=== PATIENT | male | born 1995 | race African-American/Black ===

== ENCOUNTER 2021-03-06 12:59 | Inpatient (IN) | payer MEDICAID ==
[~2021-03-06] VITALS: Ht 165.1 cm; Wt 45.4 kg
[~2021-03-06 12:59] MED LIST: POLY335015 PO; RISP2TAB28 PO
[2021-03-06 14:00] LABS: Basophils # (auto) 0 10 ^3/uL (0-0.2); Basophils % (auto) 0.1 % (0.0-2.0); Eosinophils # (auto) 0.1 10 ^3/uL (0-0.8); Eosinophils % (auto) 0.6 % (0.0-7.0); Hematocrit 41.4 % (41.0-53.0); Lymphocytes # (auto) 0.7 10 ^3/uL (0.4-5.4); Lymphocytes % (auto) 6.2 % (10.0-50.0); Mean Corpuscular Hemoglobin 30.7 pg (28.0-32.0); Mean Corpuscular Hgb Conc. 33.8 g/dL (32.0-36.0); Mean Corpuscular Volume 90.9 fL (80.0-100.0); Monocytes # (auto) 0.9 10 ^3/uL (0-1.3); Monocytes % (auto) 7.8 % (0.0-12.0); Neutrophils # (auto) 10.1 10 ^3/uL (1.6-8.6); Neutrophils % (auto) 85.3 % (37.0-80.0); Nucleated Red Blood Cells % 0.1 %; Red Blood Cells 4.56 10^6/uL (4.5-5.90); Red Cell Distribution Width 13.2 % (11.8-14.3); White Blood Cell 11.8 10^3/uL (4.4-10.8)
[2021-03-06 14:16] LABS: INR 1.12 (0.9-1.15); Partial Thromboplastin Time 27.5 sec (23.0-31.2)
[2021-03-06 14:19] LABS: Albumin 3.4 g/dL (3.4-5.0); BUN/Creatinine Ratio 13.4; Calcium 8.8 mg/dL (8.5-10.1); Potassium 3.6 mmol/L (3.5-5.1)
[2021-03-06 14:22] LABS: Bilirubin, Total 1.6 mg/dL (0.2-1.0); Total Protein 7.7 g/dL (6.4-8.2)
[2021-03-06] MEDS ORDERED: PIPERACILLIN-TAZOB 3.375GM 100 ML IV ONE (16:00)
[2021-03-06 18:15] LABS: Urine Bacteria NONE SEEN /hpf (None Seen); Urine Blood Negative /uL (Negative); Urine Mucus FEW (None Seen); Urine WBC 1 /hpf (0 - 3)
[2021-03-06 18:16] LABS: Urine Specific Gravity > 1.050 (1.001-1.035)
[2021-03-06] MEDS ORDERED: BUPIVACAINE 0.25% INJ 50ML VIAL ONE (18:21)
[2021-03-06] MEDS ORDERED: LIDOCAINE W/ EPINEPHRINE 1% 20ML VIAL ONE (18:21)
[2021-03-06] MEDS ORDERED: BACITRACIN INJ 50000 UNIT VIAL ONE (18:22)
[2021-03-06] MEDS ORDERED: MORPHINE SULFATE INJECTION 2 MG/ML SYRG IV PRN ×3 (18:30→20:30)
[2021-03-06] MEDS ORDERED: ONDANSETRON HCL 4 MG/2 ML VIAL IV ONE ×2 (18:30)
[2021-03-06] MEDS ORDERED: NITROGLYCERIN 0.4 MG SL TAB SL PRN ×2 (18:30→19:00)
[2021-03-06] MEDS ORDERED: MORPHINE SULFATE INJECTION 2 MG/ML SYRG IV ONE ×2 (18:30)
[2021-03-06] MEDS ORDERED: MIDAZOLAM HCL 2MG/2ML 2ml VIAL (1mg/ml) ONE (18:31)
[2021-03-06] MEDS ORDERED: SODIUM CHLORIDE LOCK 10 ML ONE (18:31)
[2021-03-06] MEDS ORDERED: MEPERIDINE HCL (25 MG/ML) 1ML VIAL ONE (18:31)
[2021-03-06] MEDS ORDERED: PROPOFOL 10 MG/ML 20 ML IV ONE (18:31)
[2021-03-06] MEDS ORDERED: ROCURONIUM 10MG/ML 10ML VIAL IV ONE (18:31)
[2021-03-06] MEDS ORDERED: fentaNYL CITRATE 100 MCG/2 ML VL ONE (18:31)
[2021-03-06] MEDS ORDERED: ONDANSETRON HCL 4 MG/2 ML VIAL ONE (18:31)
[2021-03-06] MEDS ORDERED: SUCCINYLCHOLINE CHLORIDE 20 MG/ML 10ML VIAL IV ONE (18:38)
[2021-03-06] MEDS ORDERED: ONDANSETRON HCL 4 MG/2 ML VIAL IV PRN (20:30)
[2021-03-06] MEDS ORDERED: HYDROmorphone HCL 2 MG/ML VL IV PRN (20:30)
[2021-03-06 21:40] VITALS: BP 127/76
[2021-03-07] MEDS ORDERED: POLY335015 PO (01:03)
[2021-03-07] MEDS ORDERED: RISP4TAB53 PO (01:03)
[2021-03-07] MEDS: MORPHINE SULFATE INJECTION 2 MG/ML SYRG IV PRN ×3 (03:38→22:03)
[2021-03-07] MEDS ORDERED: SODIUM CHLORIDE 0.9% 500 ML IV ONE ×2 (04:15→06:15)
[2021-03-07 05:31] VITALS: BP 102/58
[2021-03-07 08:00] VITALS: BP 98/57
[2021-03-07] MEDS: POLYETHYLENE GLYCOL 17 GM PWDR PO PRN (08:47)
[2021-03-07 09:00] VITALS: BP 98/57
[2021-03-07] MEDS ORDERED: ACETAMINOPHEN 325 MG TAB PO PRN (11:30)
[2021-03-07] MEDS ORDERED: DOCUSATE SOD 100 MG CAP PO SCH (11:30)
[2021-03-07] MEDS ORDERED: ACETAMINOPHEN 650 mg PER 20.3 mL UD PO PRN (12:00)
[2021-03-07] MEDS: DOCUSATE ORAL LIQUID 100 MG/10 ML UD PO SCH ×2 (12:20→22:01)
[2021-03-07 12:37] LABS: Basophils # (auto) 0 10 ^3/uL (0-0.2); Eosinophils # (auto) 0 10 ^3/uL (0-0.8); Eosinophils % (auto) 0.1 % (0.0-7.0); Hematocrit 35.8 % (41.0-53.0); Hemoglobin 12.2 g/dL (13.5-17.5); Lymphocytes # (auto) 0.8 10 ^3/uL (0.4-5.4); Lymphocytes % (auto) 8.5 % (10.0-50.0); Mean Corpuscular Volume 91.1 fL (80.0-100.0); Monocytes # (auto) 0.9 10 ^3/uL (0-1.3); Monocytes % (auto) 9.6 % (0.0-12.0); Neutrophils # (auto) 7.5 10 ^3/uL (1.6-8.6); Neutrophils % (auto) 81.8 % (37.0-80.0); Red Blood Cells 3.93 10^6/uL (4.5-5.90); White Blood Cell 9.2 10^3/uL (4.4-10.8)
[2021-03-07 12:46] LABS: BUN/Creatinine Ratio 7.7; Calcium 8.2 mg/dL (8.5-10.1); Potassium 3.6 mmol/L (3.5-5.1)
[2021-03-07 13:00] VITALS: BP 109/70
[2021-03-07 14:31] LABS: Urine Bacteria NONE SEEN /hpf (None Seen); Urine Blood 2+ /uL (Negative); Urine Mucus FEW (None Seen); Urine Specific Gravity 1.018 (1.001-1.035); Urine WBC 9 /hpf (0 - 3)
[2021-03-07 17:00] VITALS: BP 106/64
[2021-03-07 21:57] VITALS: BP 100/65
[2021-03-08] VITALS (7 sets, daily range): BP systolic 111–132; BP diastolic 66–85
[2021-03-08] MEDS: DOCUSATE ORAL LIQUID 100 MG/10 ML UD PO SCH ×2 (06:29→13:38)
[2021-03-08] MEDS: MORPHINE SULFATE INJECTION 2 MG/ML SYRG IV PRN ×2 (06:48→12:47)
[2021-03-08] MEDS: POLYETHYLENE GLYCOL 17 GM PWDR PO PRN (09:23)
[2021-03-08] MEDS ORDERED: NutriHep RTU 240 mL Unflavored PO SCH (12:00)
[2021-03-08] MEDS ORDERED: POLY335015 PO (12:23)
[2021-03-08] MEDS ORDERED: DOCU-94 PO (12:23)
[2021-03-08] MEDS ORDERED: LACT10SO3 PO (12:23)
[2021-03-08] MEDS ORDERED: LACTULOSE 20Gm/30ML SOLN PO SCH (12:30)
[2021-03-08] MEDS: Ensure Enlive Chocolate 8oz Bottle PO SCH ×2 (12:35→18:21)
[2021-03-08] MEDS ORDERED: SODIUM CHLORIDE 0.9% 1,000 ML IV ONE (17:15)
== END 2021-03-08 22:45 | disposition home or self-care (01) | DRG 483 ==
LOC: ER 12:59 → TELE 18:30 → ER 18:45 → TELE-EAST 21:42
PROVIDERS: ADMIT Internal Medicine; ATTEND Internal Medicine
PROC: 0YQ60ZZ Repair Left Inguinal Region, Open Approach (ICD-10-PCS; 2021-03-06)
PROC: 0VTB0ZZ Resection of Left Testis, Open Approach (ICD-10-PCS; principal; 2021-03-06 18:48)
DX: N44.00 Torsion of testis, unspecified (principal); K40.30 Unilateral inguinal hernia, with obstruction, without gangrene, not specified as recurrent; Z20.822 Contact with and (suspected) exposure to COVID-19
CPT/HCPCS: 36415; 71045; 74177; 80048; 80053; 81001; 83605; 83690; 83735; 85025; 85379; 85610; 85730; 87086; 87426; 88302; 93005; 93970; 96365; 96366; G0378; J0330; J2250; J2405; J2543; J2704; J3490